=== PATIENT | male | born 1945 | race Caucasian/White ===

== ENCOUNTER 2017-09-16 09:55 | Day surgery (SDC) | END 2017-09-16 15:40 | disposition home or self-care (01) ==

== ENCOUNTER 2017-09-24 11:09 | Day surgery (SDC) | END 2017-09-24 15:02 | disposition home or self-care (01) ==

== ENCOUNTER 2017-10-29 19:33 | Observation (INO) | END 2017-10-30 10:05 | disposition home or self-care (01) ==